=== PATIENT | male | born 1965 | race Two or more races ===

== ENCOUNTER 2024-11-16 11:04 | Inpatient (IN) | payer MEDICAID ==
[~2024-11-16] VITALS: Ht 162.6 cm; Wt 58.4 kg
--- NOTE | 2024-11-16 11:29 | ED.PDOC ---
GI ASSESSMENT HPI Comments 59-year-old male presents with a chief complaint of abdominal pain, nausea, vomiting, and diarrhea since November 11, 2024. Patient states that his pain is localized just above his umbilicus, is tender to palpation, rates his pain a 9/10. Patient has attempted to alleviate the pain with Tylenol, but states that it did not help. Patient cannot intake liquids or solids at this time without vomiting afterwards. Chief Complaint: Abdominal Pain Time Seen by MD: 11:17 Reviewed Notes: Medications, Allergies Allergies: Coded Allergies: No Known Drug Allergy (Verified Allergy, Unknown, 11/16/24) Information Source: Patient Mode of Arrival: Ambulatory Timing: Days Duration: Since onset Prehospital treatment: None Quality: Cramping Vomitus: Bilious, Food Particles Stool: Watery, Brown Recent: None Recent Hx of: None Pain Location: Periumbilical Associated sign and symptoms: Nausea, Vomiting, Diarrhea, Abdominal Pain Past Medical History PAST MEDICAL HISTORY: Denies Surgical History: Denies all surgeries Family History Family History: Reviewed,noncontributory to illness Social History Smoker: Non-Smoker Alcohol: Denies ETOH Use Drugs: Denies Drug Use Lives In: Home Constitutional: denies: chills, diaphoresis, fatigue, fever, malaise, sweats, weakness, others EENTM: denies: blurred vision, double vision, ear bleeding, ear discharge, ear drainage, ear pain, ear ringing, eye pain, eye redness, hearing loss, mouth pain, mouth swelling, nasal discharge, nose bleeding, nose congestion, nose pain, photophobia, tearing, throat pain, throat swelling, voice changes, others Respiratory: denies: cough, hemoptysis, orthopnea, SOB at rest, shortness of breath, SOB with excertion, stridor, wheezing, others Cardiovascular: denies: chest pain, dizzy spells, diaphoresis, Dyspnea on exertion, edema, irregular heart beat, left arm pain, lightheadedness, palpitations, PND, syncope, others Gastrointestinal: reports: abdominal pain, diarrhea, nausea, vomiting; denies: abdomen distended, blood streaked bowels, constipated, dysphagia, difficulty swallowing, hematemesis, melena, poor appetite, poor fluid intake, rectal bleeding, rectal pain, others Genitourinary: denies: burning, dysuria, flank pain, frequency, hematuria, incontinence, penile discharge, penile sore, pain, testicle pain, testicle swelling, urgency, others Neurological: denies: dizziness, fainting, headache, left sided numbness, left sided weakness, numbness, paresthesia, pre-existing deficit, right sided numbne ss, right sided weakness, seizure, speech problems, tingling, tremors, weakness, others Musculoskeletal: denies: back pain, gout, joint pain, joint swelling, muscle pain, muscle stiffness, neck pain, others Integumetry: denies: bruises, change in color, change in hair/nails, dryness, laceration, lesions, lumps, rash, wounds, others Allergic/Immunocompromised: denies: Difficulty Healing, Frequent Infections, Hives, Itching, others Hematologic/Lymphatic: denies: anemia, blood clots, easy bleeding, easy bruising, swollen glands, others Endocrine: denies: excessive hunger, excessive sweating, excessive thirst, excessive urination, flushing, intolerance to cold, intolerance to heat, unexplained weight gain, unexplained weight loss, others Psychiatric: denies: anxiety, bipolar disorder, depression, hopeless, panic disorder, schizophrenia, sleepless, suicidal, others All Other Systems: Reviewed and Negative Physical Exam General Appearance: Mild Distress, Normal HEENT: Normal ENT Inspection, Pharynx Normal, TMs Normal Neck: Full Range of Motion, Non-Tender, Normal, Normal Inspection Respiratory: Chest Non-Tender, Lungs Clear, No Accessory Muscle Use, No Respiratory Distress, Normal Breath Sounds Cardiovascular: No Edema, No JVD, No Murmur, No Gallop, Normal Peripheral Pulses, Regular Rate/Rhythm Breast Exam: Deferred Gastrointestinal: No Organomegaly, No Pulsatile Mass, Normal Bowel Sounds, Soft, Tenderness (PERIUMBILICAL REGION TENDER TO PALPATION) Genitalia: Deferred Pelvic: Deferred Rectal: Deferred Extremities: No calf tenderness, Normal capillary refill, Normal inspection, Normal range of motion, Non-tender, No pedal edema Musculoskeletal : Apperance: Normal Neurologic: Alert, 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 Was a procedure done?: No GI differential Dx Differential Diagnosis: Cholecystitis, Gastritis/PUD, Gastroenteritis, Inflammatory BD, UTI, Urolithiasis, Dehydration, Electrolyte Imbalance, Food Poisoning, Viral X-Ray, Labs, Meds, VS Vital Signs Date Time Temp Pulse Resp B/P (MAP) Pulse Ox O2 Delivery O2 Flow Rate FiO2 11/16/24 14:55 68 16 98 Room Air* 0 21 11/16/24 14:54 68 19 122/57 (78) 97 11/16/24 14:53 68 16 122/57 11/16/24 12:22 68 18 98 Room Air 11/16/24 12:22 97.6 68 18 118/70 (86) 98 97.6 11/16/24 12:22 68 14 118/70 11/16/24 11:22 71 11/16/24 11:10 98.2 75 16 121/82 (95) 99 98.2 Lab Test 11/16/24 13:14 11/16/24 11:29 11/16/24 11:19 Range/Units Troponin I High Sensitivity < 3 L 3 L </=54 ng/L White Blood Count 8.7 4.4-10.8 10^3/uL Red Blood Count 5.17 4.5-5.90 10^6/uL Hemoglobin 16.0 13.5-17.5 g/dL Hematocrit 46.8 41.0-53.0 % Mean Corpuscular Volume 90.5 80.0-100.0 fL Mean Corpuscular Hemoglobin 30.9 28.0-32.0 pg Mean Corpuscular Hemoglobin Concent 34.1 32.0-36.0 g/dL Red Cell Distribution Width 13.7 11.8-14.3 % Platelet Count 213 140-450 10^3/uL Mean Platelet Volume 9.9 6.9-10.8 fL Neutrophils (%) (Auto) 86.3 H 37.0-80.0 % Lymphocytes (%) (Auto) 9.6 L 10.0-50.0 % Monocytes (%) (Auto) 3.5 0.0-12.0 % Eosinophils (%) (Auto) 0.4 0.0-7.0 % Basophils (%) (Auto) 0.2 0.0-2.0 % Neutrophils # (Auto) 7.5 1.6-8.6 10 ^3/uL Lymphocytes # (Auto) 0.8 0.4-5.4 10 ^3/uL Monocytes # (Auto) 0.3 0-1.3 10 ^3/uL Eosinophils # (Auto) 0 0-0.8 10 ^3/uL Basophils # (Auto) 0 0-0.2 10 ^3/uL Nucleated Red Blood Cells 0.1 % Sodium Level 138 136-145 mmol/L Potassium Level 4.5 3.5-5.1 mmol/L Chloride Level 103 98-107 mmol/L Carbon Dioxide Level 26 20-31 mmol/L Anion Gap 9 5-15 Blood Urea Nitrogen 10 9-23 mg/dL Creatinine 0.98 0.700-1.30 mg/dL Glomerular Filtration Rate Calc 88 >90 mL/min BUN/Creatinine Ratio 10.2 10.0-20.0 Serum Glucose 191 H 74-106 mg/dL Calcium Level 10.4 8.7-10.4 mg/dL Urine Color Yellow Yellow Urine Clarity Clear Clear Urine pH 5.5 5.0-9.0 Urine Specific [place] 1.023 1.001-1.035 Urine Protein Negative Negative Urine Ketones 1+ H Negative Urine Blood Negative Negative /uL Urine Nitrite Negative Negative Urine Bilirubin Negative Negative Urine Urobilinogen Normal Negative mg/dL Urine Leukocyte Esterase Negative Negative /uL Urine RBC 1 0 - 3 /hpf Urine Microscopic WBC 1 0-3 /HPF Urine Squamous Epithelial Cells None seen <5 /hpf Urine Bacteria None seen None Seen /hpf Urine Mucus Few None Seen Urine Glucose 1+ H Normal mg/dL Current Medications Medications (Trade) Dose Ordered Sig/Daniel Route Start Time Stop Time Status Last Admin Sodium Chloride 1,000 ml @ 1,000 mls/hr Q1H ONCE IV 11/16/24 11:30 11/16/24 12:29 DC 11/16/24 12:23 Ondansetron HCl (Zofran) 4 mg ONCE ONCE IV 11/16/24 11:30 11/16/24 11:31 DC 11/16/24 12:22 Morphine Sulfate 4 mg ONCE ONCE IV 11/16/24 11:30 11/16/24 11:31 DC 11/16/24 12:22 Time of 1ST Reevaluation: 11:47 Reevaluation 1ST: Unchanged Patient Education/Counseling: Diagnosis, Treatment Family Education/Counseling: No Family Present SEPSIS Sepsis Screen Physician Orders Chest Portable (11/16/24 11:19) Ct Ab Pel With Iv Con Only (11/16/24 11:19) Ng/Orogastric Tube To Lis (11/16/24 13:46) * Surgical Consult (11/16/24 ) Vital Signs Date Time Temp Pulse Resp B/P (MAP) Pulse Ox O2 Delivery O2 Flow Rate FiO2 11/16/24 14:55 68 16 98 Room Air* 0 21 11/16/24 14:54 68 19 122/57 (78) 97 11/16/24 14:53 68 16 122/57 11/16/24 12:22 68 18 98 Room Air 11/16/24 12:22 97.6 68 18 118/70 (86) 98 97.6 11/16/24 12:22 68 14 118/70 11/16/24 11:22 71 11/16/24 11:10 98.2 75 16 121/82 (95) 99 98.2 Laboratory Tests Test 11/16/24 11:29 White Blood Count 8.7 10^3/uL (4.4-10.8) Medications Medications Dose Ordered Sig/Daniel Route Start Time Stop Time Status Last Admin Dose Admin Morphine Sulfate 4 mg ONCE ONCE IV 11/16/24 11:30 11/16/24 11:31 DC 11/16/24 12:22 Ondansetron HCl 4 mg ONCE ONCE IV 11/16/24 11:30 11/16/24 11:31 DC 11/16/24 12:22 Sodium Chloride 1,000 ml @ 1,000 mls/hr Q1H ONCE IV 11/16/24 11:30 11/16/24 12:29 DC 11/16/24 12:23 Departure 1 Departure Time of Disposition: 16:46 (Patient presented with abdominal pain that was concerning for possible appendicits, gastritis, cholecystitis, colitis, gastroen teritis, sbo, or orther possible surgical emergency. Data: 1. I ordered and reviewed the result of at least 3 labs including a CBC, BMP, and Urinalysis. 2. I independently interpreted the following tests: CT Abdoment and Pelvis is concerning for small bowel obstruction .Risk:This patient has a high risk of morbidity due to further diagnostic testing or treatment and may suffer from an acute abdominal process disorder. Workup reveals small-bowel obstruction and patient should be admitted for further workup. and possible expert consultation. ) Impression: Primary Impression: Small bowel obstruction Additional Impression: Intractable abdominal pain Disposition: ADMITTED INPATIENT Admit to: Med Surg Condition: Serious Critical Care Note Critical Care Time?: Yes Critical care comment: Intractable abdominal pain Authorized and Performed by: Gamaliel Zepeda MD Total critical care time: Approximately 44 minutes Due to a high probability of clinically significant, life threatening deterioration, the patient required my highest level of preparedness to intervene emergently and I personally spent this critical care time directly and personally managing the patient. This critical care time included obtaining a history; examining the patient; pulse oximetry; ordering and review of studies; arranging urgent treatment with development of a management plan; evaluation of patient's response to treatment; frequent reassessment; and, discussions with other providers. This critical care time was performed to assess and manage the high probability of imminent, life-threatening deterioration that could result in multi-organ failure. It was exclusive of separately billable procedures and treating other patients and teaching time. Please see my other sections and the rest of the note for further information on patient assessment and treatment. Stability Stability form required: No Heart Score Heart Score: Heart Score Response (Comments) Value History N/A 0 EKG N/A 0 Age N/A 0 Risk Factors N/A 0 Troponin N/A 0 Total 0 I personally scribed for GAMALIEL ZEPEDA MD ([email or web address]) on 11/16/24 at 11:29. Electronically submitted by Sacha Leon ([email or web address]). GAMALIEL ZEPEDA MD Nov 16, 2024 11:29
[2024-11-16 12:02] LABS: Chloride 103 mmol/L (98-107); Potassium 4.5 mmol/L (3.5-5.1); Sodium 138 mmol/L (136-145)
[2024-11-16 12:03] LABS: Anion Gap 9 (5-15); Carbon Dioxide 26 mmol/L (20-31)
[2024-11-16 12:08] LABS: BUN/Creatinine Ratio 10.2 (10.0-20.0); Blood Urea Nitrogen 10 mg/dL (9-23)
[2024-11-16 12:13] LABS: Hematocrit 46.8 % (41.0-53.0); Hemoglobin 16.0 g/dL (13.5-17.5); Mean Corpuscular Hemoglobin 30.9 pg (28.0-32.0); Mean Corpuscular Volume 90.5 fL (80.0-100.0); Nucleated Red Blood Cells % 0.1 %
[2024-11-16 12:15] LABS: Calcium 10.4 mg/dL (8.7-10.4); Glucose 191 mg/dL (74-106)
[2024-11-16 12:20] LABS: Urine Protein, UAD Negative (Negative)
[2024-11-16] MEDS: MORPHINE SULFATE 4 MG/ML SYR/VIAL IV ONE ×2 (12:22→14:48)
[2024-11-16] MEDS: ONDANSETRON HCL 4 MG/2 ML VIAL IV ONE ×2 (12:22→14:49)
[2024-11-16] MEDS: SODIUM CHLORIDE 0.9% 1,000 ML IV ONE (12:23)
[2024-11-16] MEDS: IOHEXOL 300 MG/ML 100ML BOTTLE IJ ONE (12:40)
--- NOTE | 2024-11-16 13:17 | DVH ---
EXAM: XY CHEST PORTABLE HISTORY: abdominal pain COMPARISON: None TECHNIQUE: PA upright view of the chest was performed. FINDINGS: No pneumothorax, consolidative infiltrates, or pulmonary edema. There are calcified granulomas in bot h lungs. The heart is not enlarged. There is slight thoracic levoscoliosis. IMPRESSION: No acute intrathoracic process.
--- NOTE | 2024-11-16 13:32 | ECG ---
[facility] Test Date: 2024-11-16 Test Time: 11:22:55 Pat Name: SALMA HILL Department: ER Room: 0287 Gender: M [employer] Analyst: CRISTINA : 1965 Requested By: GAMALIEL VINCENT Order Number: [id number] Reading MD: Mansoor Correa Measurements Intervals [place] Rate: 71 P: 56 TX: 105 QRS: 85 QRSD: 100 T: 54 QT: 403 QTc: 438 Interpretive Statements Sinus rhythm Short TX interval Borderline right axis deviation RSR' in V1 or V2, probably normal variant Electronically Signed On 11-17-2024 19:06:02 PDT by Mansoor Correa Please click the below link to view image of tracing.
--- NOTE | 2024-11-16 13:43 | DVH ---
Exam: CT CT AB PEL WITH IV CON ONLY History: abdominal pain Comparison Study: None TECHNIQUE: Multidetector CT of the abdomen pelvis with IV contrast. Axial, coronal and sagittal multi planar reformats were obtained from the axial data set by the technologist. Radiation Dose Information: CT Dose: CTDI volume is 5.2 mGy. Dose-length product is 310.76 mGy*cm FINDINGS: Bibasilar atelectasis. Heart size is within normal limits. Liver, spleen, gallbladder, pancreas and adrenal glands are unremarkable. Kidneys ureters unremarkable. Mild wall thickening of the urinary bladder with wall irregularity of t he anterior urinary bladder. Prostate measures 4.9 x 5.3 x 5.1 cm. Gastric wall thickening.. Proximal small bowel loops unremarkable. Fluid-filled distended mid small b owel loops measuring up to 3.3 cm with associated mild adjacent fat stranding . There is transition point over the midline anterior lower abdomen. Distal small bowel loops are decompressed. Appendix i s not definitely visualized. Mild distal rectal wall thickening. Otherwise Large bowel is unremarkab le. Intraperitoneal free air. No evidence of aortic aneurysm or dissection. Mild 2 moderate atherosclerotic calcification of the ao rta and bilateral iliacs. No significant lymphadenopathy. The soft tissues unremarkable. No destructive osseous lesions are noted. IMPRESSION: Fluid-filled distended mid small bowel loops measuring up to 3.3 cm consistent with bowel obstruction . Mild distal rectal wall thickening. Correlate for proctitis. Mild gastritis.
[2024-11-16 14:55] VITALS: PULSE 68; RESP 16; O2SAT 98
[2024-11-16 17:25] VITALS: PULSE 63; RESP 17; O2SAT 97
[2024-11-16] MEDS ORDERED: ONDANSETRON HCL 4 MG/2 ML VIAL IV PRN (18:45)
[2024-11-16] MEDS ORDERED: HYDROmorphone HCL 2 MG/ML VL/or syr IV PRN (18:45)
--- NOTE | 2024-11-16 18:51 | DVHHP2 ---
Admitting Diagnosis: Abdominal pain History of Present Illness 59-year-old male presents with a chief complaint of abdominal pain, nausea, vomiting, and diarrhea since November 11, 2024. Patient states that his pain is localized just above his umbilicus, is tender to palpation, rates his pain a 9/10. Patient has attempted to alleviate the pain with Tylenol, but states that it did not help. Patient cannot intake liquids or solids at this time without vomiting afterwards. PAST MEDICAL HISTORY: Denies Surgical History: Denies all surgeries Family History: Reviewed,noncontributory to illness Social History Smoker: Non-Smoker Alcohol: Denies ETOH Use Drugs: Denies Drug Use Lives In: Home Allergies: Coded Allergies: No Known Drug Allergy (Verified Allergy, Unknown, 11/16/24) Vital Signs Vital Signs Date Time Temp Pulse Resp B/P (MAP) Pulse Ox O2 Delivery O2 Flow Rate FiO2 11/16/24 18:15 97.5 73 18 163/85 (111) 95 97.5 11/16/24 17:25 Room Air* 0 21 Physical Exam 59 years old male, well nourished well developed. No apparent distress HEENT-atraumatic, normocephalic Heart-regular rate and rhythm Lungs clear to auscultate Abdomen soft, mild tender nondistended Musculoskeletal-no edema cyanosis Neuro-AO x3, no focal deficits SEPSIS Sepsis Screen Date sepsis recognized/suspect: Nov 16, 2024 Time Sepsis recognized/suspect: 1724 Recent Procedure: No On Antibiotic Therapy: No Respiratory Rate >20: No Heart Rate >90: No Temp<36 C (96.8 F) or >38.3 C: No SBP <90 or MAP <65 mmHG: No New Acute Mental Status Change: No Is the patient on CPAP, BIPAP,: No Physician Orders Chest Portable (11/16/24 11:19) Ct Ab Pel With Iv Con Only (11/16/24 11:19) Ng/Orogastric Tube To Lis (11/16/24 13:46) * Surgical Consult (11/16/24 ) Small Bowel Series-W Gastrogra (11/16/24 17:57) Lactated Ringers Lr (11/16/24 18:45) Npo Except For Medications (11/16/24 18:45) Npo (Nothing By Mouth) Diet (11/16/24 Breakfast) Comprehensive Metabolic Panel (11/17/24 05:00) Comprehensive Metabolic Panel (11/18/24 05:00) Comprehensive Metabolic Panel (11/19/24 05:00) Comprehensive Metabolic Panel (11/20/24 05:00) Comprehensive Metabolic Panel (11/21/24 05:00) Complete Blood Count (11/17/24 05:00) Complete Blood Count (11/18/24 05:00) Complete Blood Count (11/19/24 05:00) Complete Blood Count (11/20/24 05:00) Complete Blood Count (11/21/24 05:00) Admit (11/16/24 18:45) Code Status (11/16/24 18:45) Vital Signs .PER UNIT PROTOCOL (11/16/24 18:45) Review Orders With Adm.Md (11/16/24 18:45) Encourage Activity As Tolerate (11/16/24 18:45) Sodium Chloride Lock (Saline Lock Ns) (11/16/24 22:00) Notify Md Of Changes From Base (11/16/24 18:45) Advance Directive (11/16/24 18:45) Patient Condition (11/16/24 18:45) Allergies (11/16/24 18:45) Hydromorphone Injection (Dilaudid Inject (11/16/24 18:45) Ondansetron Hcl (Zofran) (11/16/24 18:45) Vital Signs Date Time Temp Pulse Resp B/P (MAP) Pulse Ox O2 Delivery O2 Flow Rate FiO2 11/16/24 18:15 97.5 73 18 163/85 (111) 95 97.5 11/16/24 17:25 63 17 97 Room Air* 0 21 11/16/24 17:12 98.5 63 17 142/55 (84) 97 98.5 11/16/24 14:55 68 16 98 Room Air* 0 21 11/16/24 14:54 68 19 122/57 (78) 97 11/16/24 14:53 68 16 122/57 11/16/24 12:22 68 18 98 Room Air 11/16/24 12:22 97.6 68 18 118/70 (86) 98 97.6 11/16/24 12:22 68 14 118/70 11/16/24 11:22 71 11/16/24 11:10 98.2 75 16 121/82 (95) 99 98.2 Laboratory Tests Test 11/16/24 11:29 White Blood Count 8.7 10^3/uL (4.4-10.8) Medications Medications Dose Ordered Sig/Daniel Route Start Time Stop Time Status Last Admin Dose Admin Morphine Sulfate 4 mg ONCE ONCE IV 11/16/24 11:30 11/16/24 11:31 DC 11/16/24 12:22 Ondansetron HCl 4 mg ONCE ONCE IV 11/16/24 11:30 11/16/24 11:31 DC 11/16/24 12:22 Sodium Chloride 1,000 ml @ 1,000 mls/hr Q1H ONCE IV 11/16/24 11:30 11/16/24 12:29 DC 11/16/24 12:23 Results Labs Test 11/16/24 13:14 11/16/24 11:29 11/16/24 11:19 Range/Units Troponin I High Sensitivity < 3 L </=54 ng/L White Blood Count 8.7 4.4-10.8 10^3/uL Red Blood Count 5.17 4.5-5.90 10^6/uL Hemoglobin 16.0 13.5-17.5 g/dL Hematocrit 46.8 41.0-53.0 % Mean Corpuscular Volume 90.5 80.0-100.0 fL Mean Corpuscular Hemoglobin 30.9 28.0-32.0 pg Mean Corpuscular Hemoglobin Concent 34.1 32.0-36.0 g/dL Red Cell Distribution Width 13.7 11.8-14.3 % Platelet Count 213 140-450 10^3/uL Mean Platelet Volume 9.9 6.9-10.8 fL Neutrophils (%) (Auto) 86.3 H 37.0-80.0 % Lymphocytes (%) (Auto) 9.6 L 10.0-50.0 % Monocytes (%) (Auto) 3.5 0.0-12.0 % Eosinophils (%) (Auto) 0.4 0.0-7.0 % Basophils (%) (Auto) 0.2 0.0-2.0 % Neutrophils # (Auto) 7.5 1.6-8.6 10 ^3/uL Lymphocytes # (Auto) 0.8 0.4-5.4 10 ^3/uL Monocytes # (Auto) 0.3 0-1.3 10 ^3/uL Eosinophils # (Auto) 0 0-0.8 10 ^3/uL Basophils # (Auto) 0 0-0.2 10 ^3/uL Nucleated Red Blood Cells 0.1 % Sodium Level 138 136-145 mmol/L Potassium Level 4.5 3.5-5.1 mmol/L Chloride Level 103 98-107 mmol/L Carbon Dioxide Level 26 20-31 mmol/L Anion Gap 9 5-15 Blood Urea Nitrogen 10 9-23 mg/dL Creatinine 0.98 0.700-1.30 mg/dL Glomerular Filtration Rate Calc 88 >90 mL/min BUN/Creatinine Ratio 10.2 10.0-20.0 Serum Glucose 191 H 74-106 mg/dL Calcium Level 10.4 8.7-10.4 mg/dL Urine Color Yellow Yellow Urine Clarity Clear Clear Urine pH 5.5 5.0-9.0 Urine Specific [place] 1.023 1.001-1.035 Urine Protein Negative Negative Urine Ketones 1+ H Negative Urine Blood Negative Negative /uL Urine Nitrite Negative Negative Urine Bilirubin Negative Negative Urine Urobilinogen Normal Negative mg/dL Urine Leukocyte Esterase Negative Negative /uL Urine RBC 1 0 - 3 /hpf Urine Microscopic WBC 1 0-3 /HPF Urine Squamous Epithelial Cells None seen <5 /hpf Urine Bacteria None seen None Seen /hpf Urine Mucus Few None Seen Urine Glucose 1+ H Normal mg/dL Primary Diagnosis Small-bowel obstruction Plan CT scan shows slow obstruction irregular bladder Surgery consult in ED UA negative NPO except meds IV fluids Patient unable to tolerate NG tubes Antiemetic for now If patient has persistent emesis start NG tube Pain control Antiemetic SCD for DVT prophylaxis PPI for GI prophylaxis Plan discussed with: Patient Problems List: (1) Intractable abdominal pain Status: Acute (2) Small bowel obstruction Status: Acute Date of Service: Nov 16, 2024 Billing Provider: MAGGI HEWITT MD Common Visit Codes: [id number] INP/OBS CARE (HIGH) MAGGI HEWITT MD Nov 16, 2024 18:51
[2024-11-16] MEDS: LACTATED RINGER'S 1,000 ML IV ONE (18:55)
[2024-11-16 19:30] VITALS: PULSE 74; RESP 19; O2SAT 96
[2024-11-16 20:15] VITALS: BP 115/71; PULSE 64; RESP 18; TEMP 99.1; O2SAT 96
[2024-11-16] MEDS: SODIUM CHLOR 0.9% PF (SALINE LOCK) 10ML VIAL/SYR IV SCH (22:00)
[2024-11-17 01:00] VITALS: BP 128/84; PULSE 64; RESP 17; TEMP 98.2; O2SAT 97
[2024-11-17 05:00] VITALS: BP 115/64; PULSE 59; RESP 17; TEMP 97.6; O2SAT 97
[2024-11-17 07:23] LABS: Alanine Aminotransferase 10 U/L (7-40); Albumin 4.1 g/dL (3.2-4.8); Anion Gap 8 (5-15); BUN/Creatinine Ratio 9.6 (10.0-20.0); Calcium 9.3 mg/dL (8.7-10.4); Carbon Dioxide 28 mmol/L (20-31); Chloride 106 mmol/L (98-107); Glucose 85 mg/dL (74-106); Potassium 4.3 mmol/L (3.5-5.1); Sodium 142 mmol/L (136-145); Total Protein 6.4 g/dL (5.7-8.2)
[2024-11-17 07:24] LABS: Alkaline Phosphatase 33 U/L (46-116); Bilirubin, Total 0.8 mg/dL (0.2-1.0); Blood Urea Nitrogen 8 mg/dL (9-23)
[2024-11-17 07:36] LABS: Hematocrit 40.8 % (41.0-53.0); Hemoglobin 13.8 g/dL (13.5-17.5); Mean Corpuscular Hemoglobin 30.7 pg (28.0-32.0); Mean Corpuscular Volume 90.5 fL (80.0-100.0); Nucleated Red Blood Cells % 0.2 %
[2024-11-17 09:00] VITALS: BP 115/69; PULSE 60; RESP 14; TEMP 97.7; O2SAT 96
[2024-11-17] MEDS: PANTOPRAZOLE 40 MG/10 ML VIAL INJ IV SCH (10:37)
[2024-11-17] MEDS ORDERED: GASTROGRAFIN 120 ML SOL ONE (11:57)
--- NOTE | 2024-11-17 15:06 | DVH ---
Procedure: XY SMALL BOWEL SERIES-W GASTROGRA Exam Date: 11/17/2024 12:17 PM Reason for study/Clinical History: R/O SBO Comparison Study: None Technique: Single contrast small bowel series performed. Findings: Initial chlorination operator view of the abdomen and pelvis appears demonstrates no acute process. Contrast is identified within the colon by 2 h. This represents a normal small bowel transit time. Small bowel loops are normal in size. Normal mucosal pattern. No evidence of small bowel obstructi on, stricture, or mucosal abnormality. The terminal ileum is well visualized and is unremarkable. IMPRESSION: Normal small bowel series. END IMPRESSION:
--- NOTE | 2024-11-17 15:38 | DVHPN2 ---
Subjective Patient had a small-bowel follow-through study today had bowel movements. Feeling better. Admitted yesterday for apparent bowel obstruction. Changes from previous H/P or p: No Changes Objective Vitals Vital Signs Date Time Temp Pulse Resp B/P (MAP) Pulse Ox O2 Delivery O2 Flow Rate FiO2 11/17/24 09:00 97.7 60 14 115/69 (84) 96 97.7 11/17/24 08:08 Room Air* 0 21 Intake/Output Intake and Output 11/17/24 07:00 Intake Total 1000 ml Balance 1000 ml Intake Oral 0 ml IV Total 1000 ml Exam Comfortable in bed. Family at bedside. HEENT neck supple no JVD. Heart regular rate and rhythm S1-S2. Lungs fair air movement without rales wheezes. Abdomen soft nontender positive bowel sounds nondistended. Extremities no edema positive pulses. Medications Current Medications Medications Dose Ordered Sig/Daniel Route Start Time Stop Time Status Last Admin Dose Admin Sodium Chloride 10 ml Q8HR IV 11/16/24 22:00 11/17/24 15:25 10 ML Hydromorphone HCl 0.5 mg Q4HP PRN IV 11/16/24 18:45 Ondansetron HCl 4 mg Q4HP PRN IV 11/16/24 18:45 Pantoprazole Sodium 40 mg DAILY IV 11/17/24 10:00 11/17/24 10:37 40 MG Laboratory Results Laboratory Tests 11/17/24 04:25 Chemistry Test 11/17/24 04:25 Albumin 4.1 g/dL (3.2-4.8) Calcium Level 9.3 mg/dL (8.7-10.4) Total Protein 6.4 g/dL (5.7-8.2) LFT Test 11/17/24 04:25 Alanine Aminotransferase (ALT) 10 U/L (7-40) Alkaline Phosphatase 33 U/L (46-116) L Aspartate Amino Transferase (AST) 16 U/L (13-40) Total Bilirubin 0.8 mg/dL (0.2-1.0) Urinalysis Test 11/16/24 11:19 Urine Color Yellow (Yellow) Urine Clarity Clear (Clear) Urine pH 5.5 (5.0-9.0) Urine Specific [place] 1.023 (1.001-1.035) Urine Protein Negative (Negative) Urine Ketones 1+ (Negative) H Urine Blood Negative /uL (Negative) Urine Nitrite Negative (Negative) Urine Bilirubin Negative (Negative) Urine Urobilinogen Normal mg/dL (Negative) Urine Leukocyte Esterase Negative /uL (Negative) Urine RBC 1 /hpf (0 - 3) Urine Microscopic WBC 1 /HPF (0-3) Urine Squamous Epithelial Cells None seen /hpf (<5) Urine Bacteria None seen /hpf (None Seen) Urine Mucus Few (None Seen) Urine Glucose 1+ mg/dL (Normal) H Assessment/Plan Assessment/Plan Given patient had bowel movements post small-bowel follow-through study I will start him on clear liquid diet. Get him out of bed ambulate as he tolerates. If he tolerates clear liquid diet we will trial of full liquids for breakfast tomorrow. Discussed with the patient and his son at bedside regarding care plan. Also discussed with the nurse regarding care plan and time off from work papers also signed per son's request. Plan discussed with: Patient, Son My Orders Orders - ALY ORDOÑEZ MD Procedure Category Date Status Time * Surgical Consult CONS 11/17/24 Transmitted 14:04 Clear Liq Diet DIET 11/17/24 Transmitted Dinner Communication Order ORDERS 11/17/24 Transmitted 15:17 Problem List: (1) Small bowel obstruction (2) Intractable abdominal pain Date of Service: Nov 17, 2024 Billing Provider: ALY ORDOÑEZ MD Common Visit Codes: [id number] INP/OBS CARE(MOD) ALY ORDOÑEZ MD Nov 17, 2024 15:38
[2024-11-17 17:00] VITALS: BP 117/74; PULSE 60; RESP 14; TEMP 97.5; O2SAT 98
--- NOTE | 2024-11-17 18:36 | DVHINCON2 ---
Date of service: Nov 17, 2024 Allergies: Coded Allergies: No Known Drug Allergy (Verified Allergy, Unknown, 11/16/24) Current Medications Current Medications Medications (Trade) Dose Ordered Sig/Daniel Route PRN Reason Start Time Stop Time Status Last Admin Sodium Chloride (Saline Lock Ns) 10 ml Q8HR IV 11/16/24 22:00 11/17/24 15:25 Hydromorphone HCl (Dilaudid Injection) 0.5 mg Q4HP PRN IV SEVERE PAIN (7-10 PAIN SCALE) 11/16/24 18:45 Ondansetron HCl (Zofran) 4 mg Q4HP PRN IV NAUSEA / VOMITING 11/16/24 18:45 Pantoprazole Sodium (Protonix) 40 mg DAILY IV 11/17/24 10:00 11/17/24 10:37 Vital Signs Vital Signs Date Time Temp Pulse Resp B/P (MAP) Pulse Ox O2 Delivery O2 Flow Rate FiO2 11/17/24 17:00 97.5 60 14 117/74 (88) 98 97.5 11/17/24 08:08 Room Air* 0 21 Labs/Diagnostic Data Labs Test 11/17/24 04:25 11/16/24 13:14 11/16/24 11:19 Range/Units White Blood Count 4.2 #L 4.4-10.8 10^3/uL Red Blood Count 4.51 4.5-5.90 10^6/uL Hemoglobin 13.8 13.5-17.5 g/dL Hematocrit 40.8 #L 41.0-53.0 % Mean Corpuscular Volume 90.5 80.0-100.0 fL Mean Corpuscular Hemoglobin 30.7 28.0-32.0 pg Mean Corpuscular Hemoglobin Concent 33.9 32.0-36.0 g/dL Red Cell Distribution Width 13.8 11.8-14.3 % Platelet Count 175 140-450 10^3/uL Mean Platelet Volume 9.8 6.9-10.8 fL Neutrophils (%) (Auto) 44.9 37.0-80.0 % Lymphocytes (%) (Auto) 41.3 10.0-50.0 % Monocytes (%) (Auto) 7.4 0.0-12.0 % Eosinophils (%) (Auto) 5.8 0.0-7.0 % Basophils (%) (Auto) 0.6 0.0-2.0 % Neutrophils # (Auto) 1.9 1.6-8.6 10 ^3/uL Lymphocytes # (Auto) 1.7 0.4-5.4 10 ^3/uL Monocytes # (Auto) 0.3 0-1.3 10 ^3/uL Eosinophils # (Auto) 0.2 0-0.8 10 ^3/uL Basophils # (Auto) 0 0-0.2 10 ^3/uL Nucleated Red Blood Cells 0.2 % Sodium Level 142 136-145 mmol/L Potassium Level 4.3 3.5-5.1 mmol/L Chloride Level 106 98-107 mmol/L Carbon Dioxide Level 28 20-31 mmol/L Anion Gap 8 5-15 Blood Urea Nitrogen 8 L 9-23 mg/dL Creatinine 0.83 0.700-1.30 mg/dL Glomerular Filtration Rate Calc 100 >90 mL/min BUN/Creatinine Ratio 9.6 L 10.0-20.0 Serum Glucose 85 # 74-106 mg/dL Calcium Level 9.3 8.7-10.4 mg/dL Total Bilirubin 0.8 0.2-1.0 mg/dL Aspartate Amino Transferase (AST) 16 13-40 U/L Alanine Aminotransferase (ALT) 10 7-40 U/L Alkaline Phosphatase 33 L 46-116 U/L Total Protein 6.4 5.7-8.2 g/dL Albumin 4.1 3.2-4.8 g/dL Troponin I High Sensitivity < 3 L </=54 ng/L Urine Color Yellow Yellow Urine Clarity Clear Clear Urine pH 5.5 5.0-9.0 Urine Specific [place] 1.023 1.001-1.035 Urine Protein Negative Negative Urine Ketones 1+ H Negative Urine Blood Negative Negative /uL Urine Nitrite Negative Negative Urine Bilirubin Negative Negative Urine Urobilinogen Normal Negative mg/dL Urine Leukocyte Esterase Negative Negative /uL Urine RBC 1 0 - 3 /hpf Urine Microscopic WBC 1 0-3 /HPF Urine Squamous Epithelial Cells None seen <5 /hpf Urine Bacteria None seen None Seen /hpf Urine Mucus Few None Seen Urine Glucose 1+ H Normal mg/dL Assessment [id number] AFEBRILE VSS ABD SOFT NON TENDER RESOLVING SBO MANAGE CONSERVATIVELY ADVANCE DIET JOSSELYN CLEARED FOR DISCHARGE Plan discussed with: Other ARLIN GODOY MD Nov 17, 2024 18:36
--- NOTE | 2024-11-17 19:06 | DVHINCON2 ---
DATE OF CONSULTATION: 11/17/2024 HISTORY OF PRESENT ILLNESS: This patient is 59 years old, coming in with abdominal pain, now feeling better. He had some nausea, vomiting, and no bowel activity, but now he has had a bowel movement and he is tolerating a diet as well. No hematemesis or melena. No bleeding per rectum. PAST MEDICAL HISTORY: No diabetes or hypertension. PAST SURGICAL HISTORY: Appendectomy and cataract surgery. PHYSICAL EXAMINATION: VITAL SIGNS: Afebrile, stable signs. HEENT: With no evidence of pallor, cyanosis, or jaundice. NECK: Supple and nontender, with no thyromegaly or lymphadenopathy. CHEST AND LUNGS: Clear. HEART: Within normal limits. ABDOMEN: Soft, benign. NEUROLOGIC: Not assessed. PLAN: Gastrografin study showed resolution of small bowel obstructions. So, at this point, the patient needs to be managed conservatively. No indications for urgent surgery and advance diet as tolerated. He is cleared for discharge. MD SHERMAN Miller/SEAN TID: [id number] RECEIPT: [id number] cc: Ck Holm MD
[2024-11-17 20:00] VITALS: PULSE 71; RESP 17
[2024-11-17 21:00] VITALS: BP 111/72; PULSE 71; RESP 17; TEMP 98.2; O2SAT 98
[2024-11-18 01:00] VITALS: BP 115/71; PULSE 57; RESP 17; TEMP 98.3; O2SAT 100
[2024-11-18 05:00] VITALS: BP 109/70; PULSE 65; RESP 17; TEMP 97.5; O2SAT 97
[2024-11-18 06:04] LABS: Hematocrit 41.2 % (41.0-53.0); Hemoglobin 13.6 g/dL (13.5-17.5); Mean Corpuscular Hemoglobin 30.1 pg (28.0-32.0); Mean Corpuscular Volume 90.9 fL (80.0-100.0); Nucleated Red Blood Cells % 0.3 %
[2024-11-18 06:10] LABS: Alanine Aminotransferase 10 U/L (7-40); Anion Gap 10 (5-15); BUN/Creatinine Ratio 16.0 (10.0-20.0); Blood Urea Nitrogen 12 mg/dL (9-23); Calcium 8.8 mg/dL (8.7-10.4); Carbon Dioxide 25 mmol/L (20-31); Glucose 84 mg/dL (74-106); Potassium 3.8 mmol/L (3.5-5.1); Sodium 143 mmol/L (136-145); Total Protein 6.3 g/dL (5.7-8.2)
[2024-11-18 06:11] LABS: Bilirubin, Total 0.6 mg/dL (0.2-1.0)
[2024-11-18 06:14] LABS: Alkaline Phosphatase 32 U/L (46-116); Chloride 108 mmol/L (98-107)
[2024-11-18 06:28] LABS: Albumin 4.0 g/dL (3.2-4.8)
[2024-11-18 09:00] VITALS: BP_SYST 115; BP_SYST 122; BP_DIAS 75; BP_DIAS 93; PULSE 60; PULSE 79; RESP 18; RESP 99; TEMP 98.5; TEMP 98.6; O2SAT 60; O2SAT 97
[2024-11-18 10:28] LABS: Hepatitis C Antibody Negative (Negative)
[2024-11-18 13:00] VITALS: BP_SYST 127; BP_SYST 129; BP_DIAS 79; BP_DIAS 85; PULSE 61; RESP 18; RESP 20; TEMP 98.6; O2SAT 100; O2SAT 97
--- NOTE | 2024-11-18 13:51 | DVHPN2 ---
Progress Note Date Seen: Nov 18, 2024 Medical Necessity Reason Pt with a Central, PICC or Fol: No Objective vital signs Vital Sign Date Time Temp Pulse Resp B/P (MAP) Pulse Ox O2 Delivery O2 Flow Rate FiO2 11/18/24 09:00 98.6 60 99 115/75 (88) 60 98.6 11/18/24 08:08 Room Air* 0 21 Total Intake and Output 11/17/24 11/17/24 11/18/24 15:00 23:00 07:00 Intake Total 0 ml 850 ml Balance 0 ml 850 ml medications Current Medications Medications Dose Ordered Sig/Daniel Route Start Time Stop Time Status Last Admin Dose Admin Sodium Chloride 10 ml Q8HR IV 11/16/24 22:00 11/18/24 06:00 10 ML Hydromorphone HCl 0.5 mg Q4HP PRN IV 11/16/24 18:45 Ondansetron HCl 4 mg Q4HP PRN IV 11/16/24 18:45 Pantoprazole Sodium 40 mg DAILY IV 11/17/24 10:00 11/18/24 10:26 40 MG laboratory and microbiology Laboratory Tests 11/18/24 05:08 Test 11/18/24 05:08 Range/Units Serum Glucose 84 74-106 mg/dL Problem List/Assessment/Plan Problem List/Assessment/Plan AFEBBRILE VSS ABD SOFT NON TENDER JOSSELYN DIET CLEARED FOR DISCHARGE Plan discussed with: Patient ARLIN GODOY MD Nov 18, 2024 13:51
[2024-11-18] MEDS ORDERED: SENN-105 PO (15:13)
--- NOTE | 2024-11-18 15:14 | DVHDS2 ---
Discharge Summary Date of Admission Nov 16, 2024 at 18:45 Date of Discharge: Nov 18, 2024 Labs/Diagnostic Data: Laboratory Results Test 11/18/24 05:08 11/17/24 04:25 11/16/24 13:14 11/16/24 11:19 White Blood Count 4.8 10^3/uL (4.4-10.8) Red Blood Count 4.53 10^6/uL (4.5-5.90) Hemoglobin 13.6 g/dL (13.5-17.5) Hematocrit 41.2 % (41.0-53.0) Mean Corpuscular Volume 90.9 fL (80.0-100.0) Mean Corpuscular Hemoglobin 30.1 pg (28.0-32.0) Mean Corpuscular Hemoglobin Concent 33.1 g/dL (32.0-36.0) Red Cell Distribution Width 13.8 % (11.8-14.3) Platelet Count 185 10^3/uL (140-450) Mean Platelet Volume 9.4 fL (6.9-10.8) Neutrophils (%) (Auto) 43.0 % (37.0-80.0) Lymphocytes (%) (Auto) 42.9 % (10.0-50.0) Monocytes (%) (Auto) 7.9 % (0.0-12.0) Eosinophils (%) (Auto) 5.7 % (0.0-7.0) Basophils (%) (Auto) 0.5 % (0.0-2.0) Neutrophils # (Auto) 2.1 10 ^3/uL (1.6-8.6) Lymphocytes # (Auto) 2.1 10 ^3/uL (0.4-5.4) Monocytes # (Auto) 0.4 10 ^3/uL (0-1.3) Eosinophils # (Auto) 0.3 10 ^3/uL (0-0.8) Basophils # (Auto) 0 10 ^3/uL (0-0.2) Nucleated Red Blood Cells 0.3 % Sodium Level 143 mmol/L (136-145) Potassium Level 3.8 mmol/L (3.5-5.1) Chloride Level 108 mmol/L (98-107) Carbon Dioxide Level 25 mmol/L (20-31) Anion Gap 10 (5-15) Blood Urea Nitrogen 12 mg/dL (9-23) Creatinine 0.75 mg/dL (0.700-1.30) Glomerular Filtration Rate Calc 103 mL/min (>90) BUN/Creatinine Ratio 16.0 (10.0-20.0) Serum Glucose 84 mg/dL (74-106) Calcium Level 8.8 mg/dL (8.7-10.4) Total Bilirubin 0.6 mg/dL (0.2-1.0) Aspartate Amino Transferase (AST) 15 U/L (13-40) Alanine Aminotransferase (ALT) 10 U/L (7-40) Alkaline Phosphatase 32 U/L (46-116) Total Protein 6.3 g/dL (5.7-8.2) Albumin 4.0 g/dL (3.2-4.8) Hepatitis B Surface Antibody Negative (Negative) Hepatitis C Antibody Negative (Negative) Troponin I High Sensitivity < 3 ng/L (</=54) Urine Color Yellow (Yellow) Urine Clarity Clear (Clear) Urine pH 5.5 (5.0-9.0) Urine Specific [place] 1.023 (1.001-1.035) Urine Protein Negative (Negative) Urine Ketones 1+ (Negative) Urine Blood Negative /uL (Negative) Urine Nitrite Negative (Negative) Urine Bilirubin Negative (Negative) Urine Urobilinogen Normal mg/dL (Negative) Urine Leukocyte Esterase Negative /uL (Negative) Urine RBC 1 /hpf (0 - 3) Urine Microscopic WBC 1 /HPF (0-3) Urine Squamous Epithelial Cells None seen /hpf (<5) Urine Bacteria None seen /hpf (None Seen) Urine Mucus Few (None Seen) Urine Glucose 1+ mg/dL (Normal) Other Laboratory Tests 11/18/24 05:08 Condition at Discharge: Stable Final Diagnosis/Problems List sbo Discharge Disposition: Home Discharge Instruct/Medications Diet: Consistent carbohydrate, Cardiac 2g Na,low cholest Activity: No Restrictions, As Tolerated Follow Up/Referral: with DR.Rakesh Hargrove surgeon after 2 weeks. to call his office to make an appointment Medications: as prescribed Scheduled Senna (Senna), 8.6 MG PO QPM Discharge Statement: "Patient was advised to return to the ER or call 911 if any headaches, dizziness, shortness of breath, chest pain, abdominal pain, bleeding, fevers, or worsening of medical condition. Patient was counseled about treatment plan, medications, possible side effects, patientverbalized understanding. All questions were answered to the best of my ability. This discharge took greater then 30 minutes in planning, reviewing documentation, counseling the patient, and discussing with other team members." ASSESSMENT ASSESSMENT Assessment ALY Colby MD Nov 18, 2024 15:14
--- NOTE | 2024-11-18 15:27 | DVHDS2 ---
Discharge Summary Date of Admission Nov 16, 2024 at 18:45 Date of Discharge: Nov 18, 2024 Labs/Diagnostic Data: Laboratory Results Test 11/18/24 05:08 11/17/24 04:25 11/16/24 13:14 11/16/24 11:19 White Blood Count 4.8 10^3/uL (4.4-10.8) Red Blood Count 4.53 10^6/uL (4.5-5.90) Hemoglobin 13.6 g/dL (13.5-17.5) Hematocrit 41.2 % (41.0-53.0) Mean Corpuscular Volume 90.9 fL (80.0-100.0) Mean Corpuscular Hemoglobin 30.1 pg (28.0-32.0) Mean Corpuscular Hemoglobin Concent 33.1 g/dL (32.0-36.0) Red Cell Distribution Width 13.8 % (11.8-14.3) Platelet Count 185 10^3/uL (140-450) Mean Platelet Volume 9.4 fL (6.9-10.8) Neutrophils (%) (Auto) 43.0 % (37.0-80.0) Lymphocytes (%) (Auto) 42.9 % (10.0-50.0) Monocytes (%) (Auto) 7.9 % (0.0-12.0) Eosinophils (%) (Auto) 5.7 % (0.0-7.0) Basophils (%) (Auto) 0.5 % (0.0-2.0) Neutrophils # (Auto) 2.1 10 ^3/uL (1.6-8.6) Lymphocytes # (Auto) 2.1 10 ^3/uL (0.4-5.4) Monocytes # (Auto) 0.4 10 ^3/uL (0-1.3) Eosinophils # (Auto) 0.3 10 ^3/uL (0-0.8) Basophils # (Auto) 0 10 ^3/uL (0-0.2) Nucleated Red Blood Cells 0.3 % Sodium Level 143 mmol/L (136-145) Potassium Level 3.8 mmol/L (3.5-5.1) Chloride Level 108 mmol/L (98-107) Carbon Dioxide Level 25 mmol/L (20-31) Anion Gap 10 (5-15) Blood Urea Nitrogen 12 mg/dL (9-23) Creatinine 0.75 mg/dL (0.700-1.30) Glomerular Filtration Rate Calc 103 mL/min (>90) BUN/Creatinine Ratio 16.0 (10.0-20.0) Serum Glucose 84 mg/dL (74-106) Calcium Level 8.8 mg/dL (8.7-10.4) Total Bilirubin 0.6 mg/dL (0.2-1.0) Aspartate Amino Transferase (AST) 15 U/L (13-40) Alanine Aminotransferase (ALT) 10 U/L (7-40) Alkaline Phosphatase 32 U/L (46-116) Total Protein 6.3 g/dL (5.7-8.2) Albumin 4.0 g/dL (3.2-4.8) Hepatitis B Surface Antibody Negative (Negative) Hepatitis C Antibody Negative (Negative) Troponin I High Sensitivity < 3 ng/L (</=54) Urine Color Yellow (Yellow) Urine Clarity Clear (Clear) Urine pH 5.5 (5.0-9.0) Urine Specific [place] 1.023 (1.001-1.035) Urine Protein Negative (Negative) Urine Ketones 1+ (Negative) Urine Blood Negative /uL (Negative) Urine Nitrite Negative (Negative) Urine Bilirubin Negative (Negative) Urine Urobilinogen Normal mg/dL (Negative) Urine Leukocyte Esterase Negative /uL (Negative) Urine RBC 1 /hpf (0 - 3) Urine Microscopic WBC 1 /HPF (0-3) Urine Squamous Epithelial Cells None seen /hpf (<5) Urine Bacteria None seen /hpf (None Seen) Urine Mucus Few (None Seen) Urine Glucose 1+ mg/dL (Normal) Other Laboratory Tests 11/18/24 05:08 Brief Hx & Hospital Course: 59-year-old male presents with a chief complaint of abdominal pain, nausea, vomiting, and diarrhea since November 11, 2024. Patient states that his pain is localized just above his umbilicus, is tender to palpation, rates his pain a 9/10. Patient has attempted to alleviate the pain with Tylenol, but states that it did not help. Patient cannot intake liquids or solids at this time without vomiting afterwards. He is admitted and evaluated by general surgeon. Patient had a small-bowel follow-through study which is normal. Obstruction is resolved. Patient is tolerating diet. Therefore he has been discharged home in stable condition. Patient apparently had a colonoscopy EGD few years back reported to be normal per her son who is at bedside. Advised the son and the patient that to keep his bowels regular without constipation. If patient continued to have recurrent bowel obstructions at least three or more episodes per year then to follow up with the surgeon to consider diagnostic/elective laparoscopy to see why he is having recurrent obstructions. Patient and family verbalized understanding of this and agreed to follow up with surgeon as recommended. Given clinically stable back to normal baseline status he has been discharged home. Consults/Reason for consult CONSULTATION REPORT . ................................................................................ ............................................................................... DATE OF CONSULTATION: 11/17/2024 HISTORY OF PRESENT ILLNESS: This patient is 59 years old, coming in with abdominal pain, now feeling better. He had some nausea, vomiting, and no bowel activity, but now he has had a bowel movement and he is tolerating a diet as well. No hematemesis or melena. No bleeding per rectum. PAST MEDICAL HISTORY: No diabetes or hypertension. PAST SURGICAL HISTORY: Appendectomy and cataract surgery. PHYSICAL EXAMINATION: VITAL SIGNS: Afebrile, stable signs. HEENT: With no evidence of pallor, cyanosis, or jaundice. NECK: Supple and nontender, with no thyromegaly or lymphadenopathy. CHEST AND LUNGS: Clear. HEART: Within normal limits. ABDOMEN: Soft, benign. NEUROLOGIC: Not assessed. PLAN: Gastrografin study showed resolution of small bowel obstructions. So, at this point, the patient needs to be managed conservatively. No indications for urgent surgery and advance diet as tolerated. He is cleared for discharge. MD SHERMAN Miller/SEAN TID: [id number] RECEIPT: [id number] Condition at Discharge: Stable Final Diagnosis/Problems List sbo Discharge Disposition: Home Discharge Instruct/Medications Diet: Consistent carbohydrate, Cardiac 2g Na,low cholest Activity: No Restrictions, As Tolerated Follow Up/Referral: with DR.Rakesh Hargrove surgeon after 2 weeks. to call his office to make an appointment Medications: as prescribed New Medications: Senna (Senna) 8.6 Mg Tab 8.6 MG PO QPM, #30 TAB Scheduled Senna (Senna), 8.6 MG PO QPM Discharge Statement: "Patient was advised to return to the ER or call 911 if any headaches, dizziness, shortness of breath, chest pain, abdominal pain, bleeding, fevers, or worsening of medical condition. Patient was counseled about treatment plan, medications, possible side effects, patientverbalized understanding. All questions were answered to the best of my ability. This discharge took greater then 30 minutes in planning, reviewing documentation, counseling the patient, and discussing with other team members." ASSESSMENT ASSESSMENT Assessment sbo Date of Service: Nov 18, 2024 Billing Provider: ALY ORDOÑEZ MD Common Visit Codes: 26780-SCO/OBS DISCH DAY <30MIN ALY ORDOÑEZ MD Nov 18, 2024 15:27
[2024-11-18 16:39] VITALS: BP_SYST 130; BP_SYST 138; BP_DIAS 60; BP_DIAS 86; PULSE 61; PULSE 93; RESP 18; TEMP 98.4; TEMP 98.6; O2SAT 96; O2SAT 98
[2024-11-18 19:15] VITALS: BP 125/66; PULSE 66; RESP 18; TEMP 98.7; O2SAT 97
== END 2024-11-18 19:44 | disposition home or self-care (01) | DRG 247 ==
LOC: ER 11:04 → OVERFLOW 18:45 → WEST WING 23:47
PROVIDERS: ADMIT Hospitalist; ATTEND Hospitalist
DX: K56.609 Unspecified intestinal obstruction, unspecified as to partial versus complete obstruction (principal); Z90.49 Acquired absence of other specified parts of digestive tract
CPT/HCPCS: 36415; 71045; 74177; 74250; 80048; 80053; 81001; 84484; 85025; 86706; 86803; 93005; 96361; 96374; 96375; 99291; G0378; J2405; J2470